=== PATIENT | female | born 1965 | race Two or more races ===

== ENCOUNTER → 2016-11-06 | Outpatient (CLI) | payer OTHER ==
[~2016-11-06] MED LIST: GADOBUTROL 10 ML VIAL IVP ONE
== END ==
LOC: FIMAGING 16:24
PROVIDERS: ATTEND Family Medicine
DX: M54.5 Low back pain (principal); M54.31 Sciatica, right side; M76.31 Iliotibial band syndrome, right leg
CPT/HCPCS: A9585